=== PATIENT | male | born 2000 | race Caucasian/White ===

== ENCOUNTER 2024-02-04 10:43 | Inpatient (IN) | payer OTHER, MEDICAID ==
[~2024-02-04] VITALS: Ht 172.7 cm; Wt 158.3 kg
[2024-02-04] VITALS (7 sets, daily range): BP systolic 148–158; PULSE 86–121; RESP 26; TEMP 100.4; O2SAT 96–97
[2024-02-04] MEDS: ACETAMINOPHEN 500 MG TABLET PO ONE (11:35)
[2024-02-04 11:37] LABS: BASOPHILS # (AUTO) 0.1 K/uL (0.0-0.2); BASOPHILS % (AUTO) 0.5 % (0.0-2.0); EOSINOPHILS % (AUTO) 0.1 % (0.0-4.0); HEMATOCRIT 39.1 % (36-54); HEMOGLOBIN 12.8 g/dL (14.0-18.0); LYMPHOCYTES # (AUTO) 0.7 K/uL (1.0-5.5); LYMPHOCYTES % (AUTO) 4.6 % (20.5-51.5); MEAN CORPUSCULAR HEMOGLOBIN 26 pg (27-31); MEAN CORPUSCULAR HGB CONC 33 % (32-36); MEAN CORPUSCULAR VOLUME 81 fL (79.0-98.0); MONOCYTES # (AUTO) 1.1 K/uL (0.0-1.0); MONOCYTES % (AUTO) 7.2 % (1.7-9.3); NEUTROPHILS # (AUTO) 13.3 K/uL (1.8-7.7); NEUTROPHILS % (AUTO) 87.6 % (40.0-70.0); PLATELET COUNT (AUTO) 228 K/uL (130-430); RED BLOOD CELL COUNT(AUTO) 4.86 MIL/uL (4.2-6.2); WHITE BLOOD COUNT (AUTO) 15.2 K/uL (4.8-10.8)
[2024-02-04 11:45] LABS: INFLUENZA TYPE A NEGATIVE (NEGATIVE); INFLUENZA TYPE B NEGATIVE (NEGATIVE)
[2024-02-04 11:51] LABS: ANION GAP 9 (5-15); CALCIUM 8.4 mg/dL (8.4-11.0); CARBON DIOXIDE 30 mmol/L (23-29); CHLORIDE 97 mmol/L (98-107); CREATININE 1.19 mg/dL (0.55-1.30); GFR AFRICAN AMERICAN 96 mL/min (>90); GLUCOSE 243 mg/dL (74-106); POTASSIUM 4.1 mmol/L (3.5-5.1); SODIUM SERUM 136 mmol/L (136-145); UREA NITROGEN, BLOOD 8 mg/dL (8-21)
[2024-02-04 11:52] LABS: INR 1.1 (0.80-1.20); PROTHROMBIN TIME 10.9 SECS (9.5-12.5)
[2024-02-04 11:54] LABS: GFR NON AFRICAN-AMERICAN 79 mL/min (>90)
[2024-02-04 12:05] LABS: ALANINE AMINOTRANSFERASE 28 U/L (12-78); ALBUMIN 3.3 g/dL (3.4-4.8); ASPARTATE AMINOTRANSFERASE 22 U/L (10-37); BILIRUBIN,DIRECT 0.1 mg/dL (0.0-0.3); FREE T4 (FREE THYROXINE) 0.8 ng/dL (0.6-1.6); THYROID STIMULATING HORMONE 0.52 uIu/mL (0.34-4.82); TOTAL BILIRUBIN 0.5 mg/dL (0.0-1.0); TOTAL PROTEIN, SERUM 7.8 g/dL (6.4-8.3)
[2024-02-04] MEDS ORDERED: cefTRIAXone 1 GM VIAL ONE (12:09)
[2024-02-04] MEDS: NACL 0.9% 1,000 ML IV ONE (12:30)
[2024-02-04] MEDS: cefTRIAXone 1 GM in D5W 50 ML IV ONE (12:30)
[2024-02-04 12:40] LABS: BILIRUBIN,URINE NEGATIVE (NEGATIVE); CLARITY/URINE CLEAR (CLEAR); COLOR,URINE YELLOW (YELLOW); GLUCOSE,URINE 1+ (NEGATIVE); KETONES,URINE NEGATIVE (NEGATIVE); LEUKOCYTE ESTERASE ,URINE NEGATIVE (NEGATIVE); NITRITE, URINE NEGATIVE (NEGATIVE); PROTEIN URINE NEGATIVE (NEGATIVE); UROBILINOGEN,URINE 0.2 (0.2-1.0)
[2024-02-04] MEDS ORDERED: ONDANSETRON HCL 4 MG/2 ML VIAL IVP PRN (12:45)
[2024-02-04] MEDS ORDERED: IPRATROPIUM BROM 0.5 MG/2.5 ML VIAL.NEB (ATROVENT) INH PRN (12:45)
[2024-02-04] MEDS ORDERED: HYDROcodone/ACETAMIN 10-325 MG TAB PO PRN (12:45)
[2024-02-04] MEDS ORDERED: ALBUTEROL SULFATE 0.083% 2.5 MG/3 ML VIAL.NEB INH PRN (12:45)
[2024-02-04] MEDS ORDERED: LORazepam 2 MG/ML VIAL IVP PRN (12:45)
[2024-02-04] MEDS ORDERED: ACETAMINOPHEN 325 MG TABLET PO PRN (12:45)
[2024-02-04] MEDS ORDERED: HYDROcodone/ACETAMIN 5-325 MG TAB (NORCO/ VICODIN) PO PRN (12:45)
[2024-02-04 12:55] LABS: BLOOD, URINE TRACE (NEGATIVE)
[2024-02-04 13:01] LABS: BARBITURATE, URINE NEGATIVE (NEG <=200); BENZODIAZEPINE, URINE NEGATIVE (NEG <=150); COCAINE, URINE POSITIVE (NEG <=150); METHAMPHETAMINES SCREEN,URINE NEGATIVE (NEG <=500); URINE AMPHETAMINE NEGATIVE (NEG <=500); URINE METHADONE NEGATIVE (NEG <=200)
[2024-02-04 13:02] LABS: CANNABINOID, URINE POSITIVE (NEG <=50); OPIATE, URINE NEGATIVE (NEG <=100); PHENCYCLIDINE SCREEN,URINE NEGATIVE (NEG <=25); UR TRICYCLIC ANTIDEPRESSANTS NEGATIVE (NEG <=300); URINE OXYCODONE SCREEN NEGATIVE (NEG <=100)
[2024-02-04 13:04] LABS: BACTERIA,URINE RARE /HPF (None Seen); WBC,URINE 0-3 /HPF (0-3)
[2024-02-04 14:51] LABS: ABG O2 SAT% ESTIMATE 88.6 % (94.0-100.0); BLOOD GAS BASE EXCESS -0.8 mmol/L (-3.0-3.0); BLOOD GAS HCO3 27.2 mmol/L (21.0-27.0); BLOOD GAS PO2 62.2 mmHg (75.0-100.0)
[2024-02-04 14:57] LABS: BLOOD GAS PH 7.284 (7.350-7.450)
[2024-02-04 14:58] LABS: ALLEN'S TEST POSITIVE (P); BLOOD GAS PCO2 58.7 mmHg (32.0-45.0)
[2024-02-04] MEDS: amLODIPine BESYLATE 10 MG TABLET PO ONE (17:13)
[2024-02-04 17:34] LABS: ABG O2 SAT% ESTIMATE 98.2 % (94.0-100.0); BLOOD GAS BASE EXCESS 1.9 mmol/L (-3.0-3.0); BLOOD GAS HCO3 30.3 mmol/L (21.0-27.0); BLOOD GAS PO2 131.8 mmHg (75.0-100.0)
[2024-02-04 17:39] LABS: ALLEN'S TEST POSITIVE (P); BLOOD GAS PCO2 63.9 mmHg (32.0-45.0); BLOOD GAS PH 7.294 (7.350-7.450)
[2024-02-04] MEDS: IPRATROPIUM/ALBUTEROL SULFATE 3 ML AMPUL.NEB (DUONEB) INH SCH (20:29)
[2024-02-05] VITALS (13 sets, daily range): BP systolic 122–155; PULSE 94–132; RESP 16–40; TEMP 98.9–100.4; O2SAT 93–98
[2024-02-05] MEDS: HEPARIN SODIUM,PORCINE 5,000 UNITS/ML VIAL SUBCUT SCH (00:46)
[2024-02-05 08:31] LABS: BASOPHILS # (AUTO) 0.1 K/uL (0.0-0.2); BASOPHILS % (AUTO) 0.7 % (0.0-2.0); EOSINOPHILS % (AUTO) 0.3 % (0.0-4.0); HEMATOCRIT 40.6 % (36-54); HEMOGLOBIN 13.2 g/dL (14.0-18.0); LYMPHOCYTES # (AUTO) 0.9 K/uL (1.0-5.5); LYMPHOCYTES % (AUTO) 7.3 % (20.5-51.5); MEAN CORPUSCULAR HEMOGLOBIN 27 pg (27-31); MEAN CORPUSCULAR HGB CONC 32 % (32-36); MEAN CORPUSCULAR VOLUME 82 fL (79.0-98.0); MONOCYTES # (AUTO) 1.5 K/uL (0.0-1.0); NEUTROPHILS # (AUTO) 9.8 K/uL (1.8-7.7); NEUTROPHILS % (AUTO) 79.7 % (40.0-70.0); PLATELET COUNT (AUTO) 215 K/uL (130-430); RED BLOOD CELL COUNT(AUTO) 4.93 MIL/uL (4.2-6.2); RED CELL DISTRIBUTION WIDTH 15.4 % (9.0-15.0); WHITE BLOOD COUNT (AUTO) 12.3 K/uL (4.8-10.8)
[2024-02-05 08:34] LABS: CALCIUM 8.2 mg/dL (8.4-11.0); CREATININE 0.98 mg/dL (0.55-1.30); POTASSIUM 4.5 mmol/L (3.5-5.1)
[2024-02-05] MEDS: cefTRIAXone 1 GM in D5W 50 ML IV SCH (08:49)
[2024-02-05] MEDS: amLODIPine BESYLATE 5 MG TABLET PO SCH (08:49)
[2024-02-05] MEDS: AZITHROMYCIN 500 MG in NS 250 ML IV SCH (13:51)
[2024-02-05] MEDS: DILTIAZEM HCL 60 MG TABLET PO SCH (13:52)
[2024-02-05] MEDS: ACETAMINOPHEN 325 MG TABLET PO PRN (13:52)
[2024-02-05 15:41] LABS: ABG O2 SAT% ESTIMATE 94.8 % (94.0-100.0); ALLEN'S TEST POSITIVE (P); BLOOD GAS BASE EXCESS -1.9 mmol/L (-3.0-3.0); BLOOD GAS HCO3 25.7 mmol/L (21.0-27.0); BLOOD GAS PCO2 55.2 mmHg (32.0-45.0); BLOOD GAS PH 7.286 (7.350-7.450); BLOOD GAS PO2 82.8 mmHg (75.0-100.0)
[2024-02-05] MEDS: IPRATROPIUM/ALBUTEROL SULFATE 3 ML AMPUL.NEB (DUONEB) INH SCH (21:43)
[2024-02-06] VITALS (33 sets, daily range): BP systolic 114–174; PULSE 85–126; RESP 16–43; TEMP 97.4–99.8; O2SAT 89–98
[2024-02-06 05:43] LABS: HEMATOCRIT 37.5 % (36-54); HEMOGLOBIN 12.1 g/dL (14.0-18.0); MEAN CORPUSCULAR HEMOGLOBIN 26 pg (27-31); MEAN CORPUSCULAR HGB CONC 32 % (32-36); MEAN CORPUSCULAR VOLUME 82 fL (79.0-98.0); PLATELET COUNT (AUTO) 224 K/uL (130-430); RED BLOOD CELL COUNT(AUTO) 4.58 MIL/uL (4.2-6.2); RED CELL DISTRIBUTION WIDTH 15.6 % (9.0-15.0); WHITE BLOOD COUNT (AUTO) 11.6 K/uL (4.8-10.8)
[2024-02-06 05:46] LABS: CREATININE 0.82 mg/dL (0.55-1.30); POTASSIUM 4.8 mmol/L (3.5-5.1)
[2024-02-06 09:07] LABS: BLOOD GAS BASE EXCESS 6.7 mmol/L (-3.0-3.0); BLOOD GAS HCO3 35.5 mmol/L (21.0-27.0); BLOOD GAS PH 7.326 (7.350-7.450)
[2024-02-06 09:12] LABS: ABG O2 SAT% ESTIMATE 87.3 % (94.0-100.0); ALLEN'S TEST POSITIVE (P); BLOOD GAS PCO2 69.5 mmHg (32.0-45.0); BLOOD GAS PO2 58.4 mmHg (75.0-100.0)
[2024-02-06] MEDS: FUROSEMIDE 40 MG/4 ML VIAL IVP SCH (10:32)
[2024-02-06 12:09] LABS: ABG O2 SAT% ESTIMATE 92.7 % (94.0-100.0); BLOOD GAS BASE EXCESS 9.8 mmol/L (-3.0-3.0); BLOOD GAS HCO3 38.9 mmol/L (21.0-27.0); BLOOD GAS PH 7.342 (7.350-7.450); BLOOD GAS PO2 71.2 mmHg (75.0-100.0)
[2024-02-06 12:11] LABS: BAND % (MANUAL) 6 % (0-6); BASOPHILS % (MANUAL) 0 % (0-2); EOSINOPHILS % (MANUAL) 0 % (0-7); LYMPHOCYTES % (MANUAL) 8 % (20-46); MONOCYTES % (MANUAL) 16 % (0-11); PLATELET ESTIMATE ADEQUATE (ADEQUATE)
[2024-02-06 12:21] LABS: ALLEN'S TEST POSITIVE (P); BLOOD GAS PCO2 73.4 mmHg (32.0-45.0)
[2024-02-07] VITALS (35 sets, daily range): BP systolic 119–159; PULSE 84–103; RESP 11–25; TEMP 97.2–98.7; O2SAT 93–100
[2024-02-07 05:05] LABS: BASOPHILS % (AUTO) 0.3 % (0.0-2.0); EOSINOPHILS % (AUTO) 0.3 % (0.0-4.0); HEMATOCRIT 35.5 % (36-54); HEMOGLOBIN 11.7 g/dL (14.0-18.0); LYMPHOCYTES # (AUTO) 1.8 K/uL (1.0-5.5); MEAN CORPUSCULAR HEMOGLOBIN 27 pg (27-31); MEAN CORPUSCULAR HGB CONC 33 % (32-36); MEAN CORPUSCULAR VOLUME 81 fL (79.0-98.0); MONOCYTES # (AUTO) 1.3 K/uL (0.0-1.0); MONOCYTES % (AUTO) 12.9 % (1.7-9.3); NEUTROPHILS # (AUTO) 6.9 K/uL (1.8-7.7); NEUTROPHILS % (AUTO) 68.5 % (40.0-70.0); PLATELET COUNT (AUTO) 210 K/uL (130-430); RED CELL DISTRIBUTION WIDTH 15.4 % (9.0-15.0)
[2024-02-07 05:14] LABS: CALCIUM 8.5 mg/dL (8.4-11.0); CREATININE 0.93 mg/dL (0.55-1.30); POTASSIUM 3.8 mmol/L (3.5-5.1)
[2024-02-08] VITALS (10 sets, daily range): BP systolic 114–162; PULSE 84–97; RESP 17–20; TEMP 96.4–98.2; O2SAT 93–100
[2024-02-08 07:00] LABS: BASOPHILS % (AUTO) 0.4 % (0.0-2.0); EOSINOPHILS # (AUTO) 0.1 K/uL (0.0-0.4); EOSINOPHILS % (AUTO) 1.2 % (0.0-4.0); HEMATOCRIT 38.4 % (36-54); HEMOGLOBIN 12.6 g/dL (14.0-18.0); LYMPHOCYTES # (AUTO) 2.2 K/uL (1.0-5.5); LYMPHOCYTES % (AUTO) 18.6 % (20.5-51.5); MEAN CORPUSCULAR HEMOGLOBIN 27 pg (27-31); MEAN CORPUSCULAR HGB CONC 33 % (32-36); MEAN CORPUSCULAR VOLUME 81 fL (79.0-98.0); MONOCYTES # (AUTO) 0.7 K/uL (0.0-1.0); MONOCYTES % (AUTO) 6.3 % (1.7-9.3); NEUTROPHILS # (AUTO) 8.6 K/uL (1.8-7.7); NEUTROPHILS % (AUTO) 73.5 % (40.0-70.0); PLATELET COUNT (AUTO) 229 K/uL (130-430); RED BLOOD CELL COUNT(AUTO) 4.73 MIL/uL (4.2-6.2); RED CELL DISTRIBUTION WIDTH 15.1 % (9.0-15.0); WHITE BLOOD COUNT (AUTO) 11.7 K/uL (4.8-10.8)
[2024-02-08 07:28] LABS: CALCIUM 8.7 mg/dL (8.4-11.0); CREATININE 0.84 mg/dL (0.55-1.30); POTASSIUM 3.7 mmol/L (3.5-5.1)
[2024-02-09] VITALS (11 sets, daily range): BP systolic 146–157; PULSE 74–99; RESP 18–20; TEMP 97.8–98.2; O2SAT 96–99
[2024-02-10] VITALS (13 sets, daily range): BP systolic 121–146; PULSE 74–102; RESP 17–20; TEMP 97.4–98.2; O2SAT 95–100
[2024-02-11] VITALS (12 sets, daily range): BP systolic 131–152; PULSE 57–99; RESP 18–20; TEMP 97–98.2; O2SAT 94–99
[2024-02-11 03:46] LABS: BASOPHILS # (AUTO) 0.1 K/uL (0.0-0.2); BASOPHILS % (AUTO) 0.6 % (0.0-2.0); EOSINOPHILS # (AUTO) 0.4 K/uL (0.0-0.4); EOSINOPHILS % (AUTO) 3.3 % (0.0-4.0); HEMATOCRIT 35.3 % (36-54); HEMOGLOBIN 11.5 g/dL (14.0-18.0); LYMPHOCYTES # (AUTO) 2.6 K/uL (1.0-5.5); LYMPHOCYTES % (AUTO) 19.5 % (20.5-51.5); MEAN CORPUSCULAR HEMOGLOBIN 26 pg (27-31); MEAN CORPUSCULAR HGB CONC 33 % (32-36); MEAN CORPUSCULAR VOLUME 81 fL (79.0-98.0); MONOCYTES % (AUTO) 7.5 % (1.7-9.3); NEUTROPHILS # (AUTO) 9.3 K/uL (1.8-7.7); NEUTROPHILS % (AUTO) 69.1 % (40.0-70.0); PLATELET COUNT (AUTO) 290 K/uL (130-430); RED BLOOD CELL COUNT(AUTO) 4.37 MIL/uL (4.2-6.2); RED CELL DISTRIBUTION WIDTH 15.1 % (9.0-15.0); WHITE BLOOD COUNT (AUTO) 13.4 K/uL (4.8-10.8)
[2024-02-11 03:58] LABS: CALCIUM 8.9 mg/dL (8.4-11.0); CREATININE 0.83 mg/dL (0.55-1.30); POTASSIUM 3.8 mmol/L (3.5-5.1)
[2024-02-11 04:42] LABS: ERYTHROCYTE SEDIMENTATION RATE 98 MM/HR (0-15)
[2024-02-11] MEDS ORDERED: FURO-149 PO (11:47)
[2024-02-11] MEDS ORDERED: LEVO-62 PO (11:47)
[2024-02-11] MEDS ORDERED: DILT60TA3 PO (11:47)
[2024-02-11] MEDS ORDERED: ALBMDI INH (17:43)
== END 2024-02-11 20:41 | disposition home or self-care (01) | DRG 871 ==
LOC: SED 10:43 → STU 12:35 → SMU 02-05 10:30 → SIC 02-05 21:47 → STU 02-07 18:05
PROVIDERS: ADMIT Internal Medicine; ATTEND Internal Medicine
PROC: 5A09457 Assistance with Respiratory Ventilation, 24-96 Consecutive Hours, Continuous Positive Airway Pressure (ICD-10-PCS; principal; 2024-02-04)
PROC: 5A0935A Assistance with Respiratory Ventilation, Less than 24 Consecutive Hours, High Flow/Velocity Cannula (ICD-10-PCS; 2024-02-06)
PROC: 5A09357 Assistance with Respiratory Ventilation, Less than 24 Consecutive Hours, Continuous Positive Airway Pressure (ICD-10-PCS; 2024-02-06)
PROC: 5A0935A Assistance with Respiratory Ventilation, Less than 24 Consecutive Hours, High Flow/Velocity Cannula (ICD-10-PCS; 2024-02-07)
PROC: 5A09357 Assistance with Respiratory Ventilation, Less than 24 Consecutive Hours, Continuous Positive Airway Pressure (ICD-10-PCS; 2024-02-07)
DX: A41.9 Sepsis, unspecified organism (principal); J96.21 Acute and chronic respiratory failure with hypoxia; J96.22 Acute and chronic respiratory failure with hypercapnia; E66.2 Morbid (severe) obesity with alveolar hypoventilation; Z68.43 Body mass index [BMI] 50.0-59.9, adult; Z20.822 Contact with and (suspected) exposure to COVID-19; F14.10 Cocaine abuse, uncomplicated; J40 Bronchitis, not specified as acute or chronic; R73.9 Hyperglycemia, unspecified; Z79.899 Other long term (current) drug therapy; R00.0 Tachycardia, unspecified
CPT/HCPCS: 36415; 36600; 71045; 80048; 80076; 80307; 81000; 81001; 81015; 82533; 82800-TC; 82803; 83037; 83605; 83880; 84439; 84443; 84484; 85007; 85025; 85027; 85610; 85651; 85730; 87040; 87081; 87086; 93005; 93306; 94640; 94660; 94760; 97163-GP; 99291; G0378; J0456; J0696; J1644; J1940; J7050; J7060